=== PATIENT | female | born 1955 | race Caucasian/White ===

== ENCOUNTER 2021-05-13 09:08 | Inpatient (IN) ==
[2021-05-13] MEDS ORDERED: 0.9 % Sodium Chloride 1,000 ML ONE (09:21)
[2021-05-13] MEDS ORDERED: 0.9 % Sodium Chloride 1,000 ML IVC ONE ×2 (09:26→10:01)
[2021-05-13 09:48] LABS: Basophils # 0.1 K/mcL (0.0-0.2); Basophils % 0.2 %; Eosinophils # 0.1 K/mcL (0.0-0.6); Eosinophils % 0.4 %; Hematocrit 45.2 % (35.3-44.9); Hemoglobin 15.1 g/dL (11.5-15.4); Immature Granulocytes % 1.8 % (0-4); Lymphocytes # 3.6 K/mcL (0.6-4.6); Lymphocytes % 14.5 %; Mean Corpuscular HGB Conc 33.4 g/dL (31.6-35.5); Mean Corpuscular Hemoglobin 28.2 pg (28.0-33.3); Mean Corpuscular Volume 84.3 fL (83.0-100.0); Monocytes # 2.3 K/mcL (0.0-1.3); Monocytes % 9.3 %; Neutrophils # 18.4 K/mcL (1.6-8.9); Platelet Count 497 K/mcL (140-400); Red Blood Count 5.36 M/mcL (3.82-4.97); Red Cell Distribution Width 13.6 % (11.5-14.5); Segmented Neutrophils % 73.8 %; White Blood Count 24.9 K/mcL (4.3-11.1)
[2021-05-13 09:56] LABS: INR 1.1; Prothrombin Time 12.2 Seconds (9.4-12.1)
[2021-05-13] MEDS ORDERED: Vancomycin 1,500 MG/265 ML IV.SOLN IVPB ONE (09:59)
[2021-05-13] MEDS ORDERED: Piperacillin/Tazobactam 3.375 GM in 0.9 % Sodium Chloride Mini Bag 100 ML IVPB ONE (09:59)
[2021-05-13 10:09] LABS: BUN/Creatinine Ratio 43 (6-26); Blood Urea Nitrogen 44 mg/dL (8-23); Calcium 9.8 mg/dL (8.6-10.3); Carbon Dioxide 23 mEq/L (23-29); Chloride 97 mEq/L (98-107); Glucose 114 mg/dL (70-105); Osmolality,Calculated 284 (280-300); Potassium 3.5 mEq/L (3.5-5.1); Sodium 131 mEq/L (136-145); eGFR For African Americans > 60 (> 60); eGFR For Non-African Americans 55 (> 60)
[2021-05-13 10:51] LABS: Troponin I 0.05 ng/mL (< 0.04)
[2021-05-13 11:03] LABS: Bilirubin,Urine Negative (Negative); Blood,Urine Negative (Negative); Clarity,Urine Clear (Clear); Color,Urine Light-Yellow (Yellow); Glucose,Urine (UA) Normal (Normal); Ketones,Urine Trace mg/dL (Negative); Leukocyte Esterase,Urine Negative (Negative); Nitrite,Urine Negative (Negative); PH,Urine 6.5 pH Units (5.0-8.0); Protein,Urine Trace mg/dL (Neg-Trace); Specific Gravity,Urine 1.023 (1.010-1.025); Urobilinogen,Urine Normal (Normal)
[2021-05-13] MEDS ORDERED: Aspirin 81 MG TAB.CHEW PO ONE (12:08)
[2021-05-13] MEDS ORDERED: Aspirin 81 MG TAB.CHEW ONE (12:12)
[2021-05-13] MEDS ORDERED: Ondansetron 4 MG/2 ML VIAL IVP PRN (12:51)
[2021-05-13] MEDS ORDERED: Naloxone 0.4 MG/ML INJ IVP PRN (12:51)
[2021-05-13] MEDS ORDERED: Acetaminophen 325 MG TABLET PO PRN (12:51)
[2021-05-13] MEDS ORDERED: Ringers Solution, Lactated 1,000 ML IVC SCH (13:00)
[2021-05-13] MEDS ORDERED: Isovue-370 500 ML BOTTLE IVP ONE (13:52)
[2021-05-13] MEDS ORDERED: 0.9 % Sodium Chloride 500 ML IVC ONE (13:55)
[2021-05-13] MEDS ORDERED: Vancomycin 1,500 MG/265 ML IV.SOLN IVPB SCH (14:00)
[2021-05-13] MEDS: Gabapentin 300 MG CAPSULE PO SCH ×2 (14:04→20:18)
[2021-05-13] MEDS: *HR* Heparin 5,000 UNIT/ML VIAL SQ SCH ×2 (14:05→22:12)
[2021-05-13] MEDS ORDERED: Perflutren Lipid Microsphere 1.3 ML in 0.9 % Sodium Chloride 8.7 ML IVP PRN (16:45)
[2021-05-13] MEDS: Piperacillin/Tazobactam 3.375 GM in 0.9 % Sodium Chloride Mini Bag 100 ML IVPB SCH (17:53)
[2021-05-13] MEDS: 0.9 % Sodium Chloride 1,000 ML IVC SCH (17:54)
[2021-05-14] MEDS: Vancomycin 1,250 MG/262.5 ML IV.SOLN IVPB SCH ×2 (00:10→18:19)
[2021-05-14] MEDS: Piperacillin/Tazobactam 3.375 GM in 0.9 % Sodium Chloride Mini Bag 100 ML IVPB SCH ×3 (01:58→21:21)
[2021-05-14 04:58] LABS: BUN/Creatinine Ratio 42 (6-26); Blood Urea Nitrogen 28 mg/dL (8-23); Calcium 7.3 mg/dL (8.6-10.3); Carbon Dioxide 16 mEq/L (23-29); Chloride 109 mEq/L (98-107); Cholesterol 129 mg/dL (< 200); Glucose 125 mg/dL (70-105); HDL Cholesterol 32 mg/dL (40-59); LDL Cholesterol,Calculated 69 mg/dL (< 100); Magnesium 1.7 mg/dL (1.6-2.6); Osmolality,Calculated 283 (280-300); Potassium 4.5 mEq/L (3.5-5.1); Sodium 133 mEq/L (136-145); Triglycerides 140 mg/dL (< 150); eGFR For African Americans > 60 (> 60); eGFR For Non-African Americans > 60 (> 60)
[2021-05-14] MEDS: 0.9 % Sodium Chloride 1,000 ML IVC SCH (05:57)
[2021-05-14] MEDS: *HR* Heparin 5,000 UNIT/ML VIAL SQ SCH ×3 (05:59→21:50)
[2021-05-14 06:03] LABS: Basophils % 0.2 %; Eosinophils # 0.2 K/mcL (0.0-0.6); Eosinophils % 1.2 %; Hematocrit 30.5 % (35.3-44.9); Hemoglobin 10.6 g/dL (11.5-15.4); Lymphocytes % 17.5 %; Mean Corpuscular HGB Conc 34.8 g/dL (31.6-35.5); Mean Corpuscular Hemoglobin 29.4 pg (28.0-33.3); Mean Corpuscular Volume 84.5 fL (83.0-100.0); Mean Platelet Volume 10.4 fL (9.4-12.4); Monocytes # 1.9 K/mcL (0.0-1.3); Monocytes % 10.8 %; Platelet Count 337 K/mcL (140-400); Red Blood Count 3.61 M/mcL (3.82-4.97); Red Cell Distribution Width 13.8 % (11.5-14.5); Segmented Neutrophils % 69.3 %; White Blood Count 17.2 K/mcL (4.3-11.1)
[2021-05-14] MEDS ORDERED: Regadenoson 0.4 MG/5 ML SYRINGE IVP ONE (06:28)
[2021-05-14] MEDS: Tiotropium 10 INH DOSE IH SCH (08:07)
[2021-05-14] MEDS: Gabapentin 300 MG CAPSULE PO SCH ×3 (09:14→21:50)
[2021-05-14] MEDS: Loratadine 10 MG TABLET PO SCH (09:14)
[2021-05-14] MEDS: Fluticasone Propionate Nasal 50 MCG/SPRAY BOTTLE NS SCH (09:54)
[2021-05-14] MEDS ORDERED: GI Cocktail 40 ML EACH PO ONE (16:10)
[2021-05-14] MEDS: Pantoprazole 40 MG VIAL IVP SCH (18:19)
[2021-05-14] MEDS: Azithromycin 500 MG in 0.9 % Sodium Chloride 250 ML IVPB SCH (19:28)
[2021-05-15] MEDS: Piperacillin/Tazobactam 3.375 GM in 0.9 % Sodium Chloride Mini Bag 100 ML IVPB SCH ×2 (00:57→07:50)
[2021-05-15 01:01] LABS: Basophils % 0.2 %; Eosinophils # 0.2 K/mcL (0.0-0.6); Eosinophils % 1.8 %; Hematocrit 28.5 % (35.3-44.9); Hemoglobin 9.7 g/dL (11.5-15.4); Immature Granulocytes % 0.8 % (0-4); Lymphocytes # 2.8 K/mcL (0.6-4.6); Lymphocytes % 22.7 %; Mean Corpuscular Hemoglobin 28.9 pg (28.0-33.3); Mean Corpuscular Volume 84.8 fL (83.0-100.0); Mean Platelet Volume 9.6 fL (9.4-12.4); Monocytes # 1.3 K/mcL (0.0-1.3); Monocytes % 10.3 %; Neutrophils # 7.9 K/mcL (1.6-8.9); Platelet Count 294 K/mcL (140-400); Red Blood Count 3.36 M/mcL (3.82-4.97); Red Cell Distribution Width 13.9 % (11.5-14.5); Segmented Neutrophils % 64.2 %; White Blood Count 12.3 K/mcL (4.3-11.1)
[2021-05-15 01:27] LABS: Alanine Aminotransferase 12 Units/L (7-52); Albumin 2.7 g/dL (3.5-5.7); Albumin/Globulin Ratio 1.5 (1.1-2.2); Alkaline Phosphatase 81 Units/L (34-104); Aspartate Amino Transferase 12 Units/L (13-39); BUN/Creatinine Ratio 32 (6-26); Bilirubin,Total 0.3 mg/dL (0.3-1.0); Blood Urea Nitrogen 18 mg/dL (8-23); Calcium 7.3 mg/dL (8.6-10.3); Carbon Dioxide 21 mEq/L (23-29); Chloride 107 mEq/L (98-107); Globulin 1.8 g/dL (2.4-3.5); Glucose 116 mg/dL (70-105); Magnesium 1.8 mg/dL (1.6-2.6); Osmolality,Calculated 279 (280-300); Potassium 3.2 mEq/L (3.5-5.1); Sodium 133 mEq/L (136-145); Total Protein 4.5 g/dL (6.4-8.9); eGFR For African Americans > 60 (> 60); eGFR For Non-African Americans > 60 (> 60)
[2021-05-15] MEDS: Vancomycin 1,250 MG/262.5 ML IV.SOLN IVPB SCH ×2 (03:02→11:59)
[2021-05-15] MEDS: *HR* Heparin 5,000 UNIT/ML VIAL SQ SCH (06:23)
[2021-05-15] MEDS: Pantoprazole 40 MG VIAL IVP SCH (06:23)
[2021-05-15] MEDS: Gabapentin 300 MG CAPSULE PO SCH ×3 (08:00→20:27)
[2021-05-15] MEDS: Loratadine 10 MG TABLET PO SCH (08:00)
[2021-05-15] MEDS: Fluticasone Propionate Nasal 50 MCG/SPRAY BOTTLE NS SCH (08:01)
[2021-05-15] MEDS: hydroCHLOROthiazide 25 MG TABLET PO SCH (08:07)
[2021-05-15] MEDS ORDERED: Potassium Chloride Elixir 20 MEQ/15 ML UDC PO ONE (08:20)
[2021-05-15] MEDS: Tiotropium 10 INH DOSE IH SCH (08:21)
[2021-05-15] MEDS ORDERED: *HR* Propofol 200 MG/20 ML VIAL IVP ONE (14:11)
[2021-05-15] MEDS ORDERED: Lidocaine -MPF 2% 5 ML VIAL ONE (14:11)
[2021-05-15] MEDS: Azithromycin 500 MG in 0.9 % Sodium Chloride 250 ML IVPB SCH (14:59)
[2021-05-15] MEDS ORDERED: Ondansetron ODT 4 MG TAB.RAPDIS SL PRN (17:15)
[2021-05-16 02:57] LABS: Basophils % 0.4 %; Eosinophils # 0.4 K/mcL (0.0-0.6); Eosinophils % 3.5 %; Hematocrit 26.3 % (35.3-44.9); Hemoglobin 9.1 g/dL (11.5-15.4); Immature Granulocytes % 0.8 % (0-4); Lymphocytes # 2.8 K/mcL (0.6-4.6); Lymphocytes % 26.4 %; Mean Corpuscular HGB Conc 34.6 g/dL (31.6-35.5); Mean Corpuscular Hemoglobin 29.2 pg (28.0-33.3); Mean Corpuscular Volume 84.3 fL (83.0-100.0); Mean Platelet Volume 9.4 fL (9.4-12.4); Monocytes % 9.3 %; Neutrophils # 6.3 K/mcL (1.6-8.9); Platelet Count 310 K/mcL (140-400); Red Blood Count 3.12 M/mcL (3.82-4.97); Red Cell Distribution Width 14.1 % (11.5-14.5); Segmented Neutrophils % 59.6 %; White Blood Count 10.6 K/mcL (4.3-11.1)
[2021-05-16 03:17] LABS: BUN/Creatinine Ratio 18 (6-26); Blood Urea Nitrogen 11 mg/dL (8-23); Calcium 7.5 mg/dL (8.6-10.3); Carbon Dioxide 21 mEq/L (23-29); Chloride 106 mEq/L (98-107); Glucose 106 mg/dL (70-105); Osmolality,Calculated 278 (280-300); Potassium 3.2 mEq/L (3.5-5.1); Sodium 134 mEq/L (136-145); eGFR For African Americans > 60 (> 60); eGFR For Non-African Americans > 60 (> 60)
[2021-05-16 03:31] LABS: Thyroid Stimulating Hormone 1.939 mcIU/mL (0.340-5.600)
[2021-05-16 04:38] VITALS: TEMP 98.6
[2021-05-16] MEDS ORDERED: Potassium Chloride Elixir 20 MEQ/15 ML UDC PO ONE (06:53)
[2021-05-16] MEDS ORDERED: Sucralfate 1 GM TABLET PO SCH (07:30)
[2021-05-16] MEDS: Tiotropium 10 INH DOSE IH SCH (07:49)
[2021-05-16] MEDS: hydroCHLOROthiazide 25 MG TABLET PO SCH (08:01)
[2021-05-16] MEDS: Gabapentin 300 MG CAPSULE PO SCH (08:01)
[2021-05-16] MEDS: Loratadine 10 MG TABLET PO SCH (08:01)
[2021-05-16] MEDS: Fluticasone Propionate Nasal 50 MCG/SPRAY BOTTLE NS SCH (08:03)
[2021-05-16 08:16] VITALS: BP 143/75; PULSE 95; O2SAT 97
[2021-05-16] MEDS ORDERED: levoFLOXacin 750 MG TABLET PO SCH (09:00)
[2021-05-16] MEDS ORDERED: Furosemide 40 MG TABLET PO ONE (09:26)
== END 2021-05-16 14:50 | disposition home or self-care (01) | DRG 871 ==
LOC: EMEROOARM 09:08 → 2NENU 09:08 → SUATTDRO 12:02 → 2NENU 12:54
PROVIDERS: ADMIT Family Medicine; ATTEND Internal Medicine
PROC: ENDOEBX (2021-05-15 13:30)

== ENCOUNTER 2021-07-03 12:31 | Inpatient (IN) ==
[2021-07-03] MEDS ORDERED: Vancomycin 1,250 MG/262.5 ML IV.SOLN IVPB ONE (17:06)
[2021-07-03] MEDS ORDERED: *HR* HYDROcodone/Acet 5/325 mg TABLET PO ONE (17:43)
[2021-07-03 17:45] LABS: Basophils % 0.3 %; Eosinophils # 0.1 K/mcL (0.0-0.6); Eosinophils % 0.9 %; Hematocrit 39.5 % (35.3-44.9); Hemoglobin 12.9 g/dL (11.5-15.4); Immature Granulocytes % 0.3 % (0-4); Lymphocytes % 17.2 %; Mean Corpuscular HGB Conc 32.7 g/dL (31.6-35.5); Mean Corpuscular Volume 85.7 fL (83.0-100.0); Mean Platelet Volume 10.6 fL (9.4-12.4); Monocytes # 1.1 K/mcL (0.0-1.3); Monocytes % 9.7 %; Neutrophils # 8.3 K/mcL (1.6-8.9); Platelet Count 384 K/mcL (140-400); Red Blood Count 4.61 M/mcL (3.82-4.97); Red Cell Distribution Width 12.5 % (11.5-14.5); Segmented Neutrophils % 71.6 %; White Blood Count 11.6 K/mcL (4.3-11.1)
[2021-07-03 17:54] LABS: BUN/Creatinine Ratio 13 (6-26); Blood Urea Nitrogen 13 mg/dL (8-23); C-Reactive Protein 137 mg/L (Less than 10); Calcium 9.6 mg/dL (8.6-10.3); Carbon Dioxide 25 mEq/L (23-29); Chloride 96 mEq/L (98-107); Glucose 128 mg/dL (70-105); Osmolality,Calculated 274 (280-300); Potassium 3.3 mEq/L (3.5-5.1); Sodium 131 mEq/L (136-145); eGFR For African Americans > 60 (> 60); eGFR For Non-African Americans 55 (> 60)
[2021-07-03] MEDS ORDERED: *HR* Promethazine 25 MG/ML VIAL IM PRN (20:19)
[2021-07-03] MEDS ORDERED: Acetaminophen 325 MG TABLET PO PRN (20:19)
[2021-07-03] MEDS ORDERED: Naloxone 0.4 MG/ML INJ IVP PRN (20:19)
[2021-07-03] MEDS ORDERED: Ondansetron 4 MG/2 ML VIAL IVP PRN (20:19)
[2021-07-03] MEDS ORDERED: Ringers Solution, Lactated 1,000 ML IVC SCH (20:30)
[2021-07-03] MEDS ORDERED: Saline Nasal Spray 44 ML BOTTLE NS PRN (21:34)
[2021-07-03] MEDS: Melatonin 3 MG TABLET PO PRN (21:53)
[2021-07-03] MEDS: Gabapentin 300 MG CAPSULE PO SCH (21:55)
[2021-07-03] MEDS: *HR* OxyCODONE Immed Rel 5 MG TABLET PO PRN (21:55)
[2021-07-03] MEDS: Loratadine 10 MG TABLET PO SCH (21:55)
[2021-07-03] MEDS: hydroCHLOROthiazide 25 MG TABLET PO SCH (21:59)
[2021-07-03] MEDS ORDERED: 0.9 % Sodium Chloride 1,000 ML IVC SCH (22:00)
[2021-07-03] MEDS: Sucralfate 1 GM TABLET PO SCH (22:01)
[2021-07-03] MEDS: Tiotropium 10 INH DOSE IH SCH (22:05)
[2021-07-03] MEDS: Zinc Sulfate 220 MG CAPSULE PO SCH (22:17)
[2021-07-03] MEDS: Magnesium Oxide 400 MG TABLET PO SCH (22:17)
[2021-07-03] MEDS: Piperacillin/Tazobactam 3.375 GM in 0.9 % Sodium Chloride Mini Bag 100 ML IVPB SCH (23:10)
[2021-07-04] MEDS: *HR* OxyCODONE Immed Rel 5 MG TABLET PO PRN ×3 (03:08→21:00)
[2021-07-04] MEDS ORDERED: 0.9 % Sodium Chloride 1,000 ML IVC SCH (03:15)
[2021-07-04] MEDS ORDERED: *HR* HYDROmorphone (PF) 1 MG/ML SYRINGE IVP ONE (04:11)
[2021-07-04 07:22] LABS: BUN/Creatinine Ratio 13 (6-26); Blood Urea Nitrogen 12 mg/dL (8-23); Calcium 9.4 mg/dL (8.6-10.3); Carbon Dioxide 17 mEq/L (23-29); Chloride 100 mEq/L (98-107); Chol/HDL Ratio 2.6 (0-4.9); Cholesterol 169 mg/dL (< 200); Glucose 100 mg/dL (70-105); HDL Cholesterol 64 mg/dL (40-59); LDL Cholesterol,Calculated 92 mg/dL (< 100); Osmolality,Calculated 274 (280-300); Potassium 4.2 mEq/L (3.5-5.1); Sodium 132 mEq/L (136-145); Triglycerides 66 mg/dL (< 150); eGFR For African Americans > 60 (> 60); eGFR For Non-African Americans 59 (> 60)
[2021-07-04] MEDS ORDERED: Gadolinium Contrast Agent (WT Based) IV PRN (07:26)
[2021-07-04] MEDS: Sucralfate 1 GM TABLET PO SCH ×2 (07:38→11:34)
[2021-07-04] MEDS: Gabapentin 300 MG CAPSULE PO SCH ×3 (07:39→21:51)
[2021-07-04] MEDS: Zinc Sulfate 220 MG CAPSULE PO SCH (07:39)
[2021-07-04] MEDS: Magnesium Oxide 400 MG TABLET PO SCH (07:39)
[2021-07-04] MEDS: hydroCHLOROthiazide 25 MG TABLET PO SCH (07:39)
[2021-07-04] MEDS: Piperacillin/Tazobactam 3.375 GM in 0.9 % Sodium Chloride Mini Bag 100 ML IVPB SCH (07:53)
[2021-07-04] MEDS: *HR* HYDROcodone/Acet 5/325 mg TABLET PO PRN (08:11)
[2021-07-04] MEDS ORDERED: Ringers Solution, Lactated 1,000 ML IVC SCH (08:11)
[2021-07-04 10:07] LABS: Basophils % 0.2 %; Eosinophils # 0.1 K/mcL (0.0-0.6); Eosinophils % 1.6 %; Hematocrit 33.2 % (35.3-44.9); Immature Granulocytes % 0.5 % (0-4); Lymphocytes # 1.4 K/mcL (0.6-4.6); Lymphocytes % 16.1 %; Mean Corpuscular HGB Conc 33.1 g/dL (31.6-35.5); Mean Corpuscular Hemoglobin 28.3 pg (28.0-33.3); Mean Corpuscular Volume 85.3 fL (83.0-100.0); Mean Platelet Volume 10.6 fL (9.4-12.4); Monocytes # 1.1 K/mcL (0.0-1.3); Monocytes % 12.8 %; Neutrophils # 5.8 K/mcL (1.6-8.9); Platelet Count 331 K/mcL (140-400); Red Blood Count 3.89 M/mcL (3.82-4.97); Red Cell Distribution Width 12.6 % (11.5-14.5); Segmented Neutrophils % 68.8 %; White Blood Count 8.5 K/mcL (4.3-11.1)
[2021-07-04 10:14] LABS: INR 1.2; Prothrombin Time 13.7 Seconds (9.4-12.1)
[2021-07-04] MEDS ORDERED: GADOBUTROL 30 MMOL/30 ML VIAL IVP ONE (10:17)
[2021-07-04] MEDS: Tiotropium 10 INH DOSE IH SCH (11:10)
[2021-07-04] MEDS: Vancomycin 1,500 MG/265 ML IV.SOLN IVPB SCH ×3 (14:31→20:21)
[2021-07-04] MEDS ORDERED: *HR* FentaNYL (PF) 100 MCG/2 ML VIAL ONE ×2 (17:11→19:00)
[2021-07-04] MEDS ORDERED: *HR* Propofol 200 MG/20 ML VIAL IVP ONE (17:11)
[2021-07-04] MEDS ORDERED: Ondansetron 4 MG/2 ML VIAL ONE (17:13)
[2021-07-04] MEDS ORDERED: Lidocaine -MPF 2% 5 ML VIAL ONE ×2 (17:13→18:13)
[2021-07-04] MEDS ORDERED: Lidocaine/EPI 1:100k 1% 30 ML VIAL ONE (17:28)
[2021-07-04] MEDS ORDERED: *HR* HYDROMORPHONE 2 MG/ML VIAL ONE (18:13)
[2021-07-04] MEDS ORDERED: *HR* HYDROmorphone PF 0.5 MG/0.5 ML SYRINGE IVP PRN (19:03)
[2021-07-04] MEDS: *HR* FentaNYL (PF) 100 MCG/2 ML VIAL IVP PRN ×2 (19:10→19:21)
[2021-07-05] MEDS: Piperacillin/Tazobactam 3.375 GM in 0.9 % Sodium Chloride Mini Bag 100 ML IVPB SCH ×3 (01:24→21:15)
[2021-07-05] MEDS: *HR* HYDROcodone/Acet 5/325 mg TABLET PO PRN ×2 (01:24→16:50)
[2021-07-05 02:41] LABS: Basophils % 0.2 %; Hematocrit 34.4 % (35.3-44.9); Hemoglobin 11.6 g/dL (11.5-15.4); Immature Granulocytes % 0.6 % (0-4); Lymphocytes # 0.9 K/mcL (0.6-4.6); Lymphocytes % 10.1 %; Mean Corpuscular HGB Conc 33.7 g/dL (31.6-35.5); Mean Corpuscular Hemoglobin 29.1 pg (28.0-33.3); Mean Corpuscular Volume 86.4 fL (83.0-100.0); Mean Platelet Volume 11.2 fL (9.4-12.4); Monocytes # 0.3 K/mcL (0.0-1.3); Monocytes % 3.5 %; Neutrophils # 7.6 K/mcL (1.6-8.9); Platelet Count 343 K/mcL (140-400); Red Blood Count 3.98 M/mcL (3.82-4.97); Red Cell Distribution Width 12.3 % (11.5-14.5); Segmented Neutrophils % 85.6 %; White Blood Count 8.9 K/mcL (4.3-11.1)
[2021-07-05 02:54] LABS: BUN/Creatinine Ratio 18 (6-26); Blood Urea Nitrogen 14 mg/dL (8-23); Calcium 8.8 mg/dL (8.6-10.3); Carbon Dioxide 19 mEq/L (23-29); Chloride 103 mEq/L (98-107); Glucose 130 mg/dL (70-105); Magnesium 1.6 mg/dL (1.6-2.6); Osmolality,Calculated 278 (280-300); Phosphorous 3.6 mg/dL (2.7-4.5); Potassium 4.3 mEq/L (3.5-5.1); Sodium 133 mEq/L (136-145); eGFR For African Americans > 60 (> 60); eGFR For Non-African Americans > 60 (> 60)
[2021-07-05] MEDS: *HR* OxyCODONE Immed Rel 5 MG TABLET PO PRN ×2 (06:16→12:51)
[2021-07-05] MEDS: Sucralfate 1 GM TABLET PO SCH ×4 (06:17→21:13)
[2021-07-05] MEDS: *HR* Enoxaparin 40 MG/0.4 ML SYRINGE SQ SCH (06:17)
[2021-07-05] MEDS: Tiotropium 10 INH DOSE IH SCH (08:03)
[2021-07-05] MEDS: Zinc Sulfate 220 MG CAPSULE PO SCH (09:03)
[2021-07-05] MEDS: hydroCHLOROthiazide 25 MG TABLET PO SCH (09:03)
[2021-07-05] MEDS: Gabapentin 300 MG CAPSULE PO SCH ×3 (09:03→21:14)
[2021-07-05] MEDS: Magnesium Oxide 400 MG TABLET PO SCH ×2 (09:04→21:14)
[2021-07-05] MEDS ORDERED: Vancomycin 1,500 MG/265 ML IV.SOLN IVPB SCH (18:00)
[2021-07-05] MEDS: Loratadine 10 MG TABLET PO SCH ×2 (21:12→21:14)
[2021-07-06] MEDS: Piperacillin/Tazobactam 3.375 GM in 0.9 % Sodium Chloride Mini Bag 100 ML IVPB SCH ×3 (03:39→20:23)
[2021-07-06] MEDS: *HR* HYDROcodone/Acet 5/325 mg TABLET PO PRN ×2 (03:40→20:47)
[2021-07-06] MEDS: *HR* Enoxaparin 40 MG/0.4 ML SYRINGE SQ SCH (05:11)
[2021-07-06] MEDS: Magnesium Oxide 400 MG TABLET PO SCH ×2 (07:43→20:26)
[2021-07-06] MEDS: hydroCHLOROthiazide 25 MG TABLET PO SCH (07:44)
[2021-07-06] MEDS: Gabapentin 300 MG CAPSULE PO SCH ×3 (07:44→20:27)
[2021-07-06] MEDS: Sucralfate 1 GM TABLET PO SCH ×3 (07:44→14:38)
[2021-07-06] MEDS: Zinc Sulfate 220 MG CAPSULE PO SCH (07:45)
[2021-07-06] MEDS: Tiotropium 10 INH DOSE IH SCH (07:56)
[2021-07-06] MEDS: *HR* OxyCODONE Immed Rel 5 MG TABLET PO PRN ×2 (08:07→14:39)
[2021-07-06 08:27] LABS: BUN/Creatinine Ratio 19 (6-26); Blood Urea Nitrogen 15 mg/dL (8-23); Carbon Dioxide 22 mEq/L (23-29); Chloride 105 mEq/L (98-107); Glucose 109 mg/dL (70-105); Osmolality,Calculated 283 (280-300); Potassium 4.1 mEq/L (3.5-5.1); Sodium 136 mEq/L (136-145); eGFR For African Americans > 60 (> 60); eGFR For Non-African Americans > 60 (> 60)
[2021-07-06] MEDS: Vancomycin 1,750 MG/517.5 ML IV.SOLN IVPB SCH (17:43)
[2021-07-06] MEDS: Melatonin 3 MG TABLET PO PRN (20:26)
[2021-07-06] MEDS: Loratadine 10 MG TABLET PO SCH (20:26)
[2021-07-07 00:49] LABS: BUN/Creatinine Ratio 18 (6-26); Blood Urea Nitrogen 16 mg/dL (8-23); Calcium 8.6 mg/dL (8.6-10.3); Carbon Dioxide 22 mEq/L (23-29); Chloride 106 mEq/L (98-107); Glucose 133 mg/dL (70-105); Osmolality,Calculated 283 (280-300); Potassium 3.5 mEq/L (3.5-5.1); Sodium 135 mEq/L (136-145); eGFR For African Americans > 60 (> 60); eGFR For Non-African Americans > 60 (> 60)
[2021-07-07] MEDS: Piperacillin/Tazobactam 3.375 GM in 0.9 % Sodium Chloride Mini Bag 100 ML IVPB SCH (04:54)
[2021-07-07] MEDS: *HR* Enoxaparin 40 MG/0.4 ML SYRINGE SQ SCH (05:00)
[2021-07-07] MEDS: Sucralfate 1 GM TABLET PO SCH ×3 (08:34→16:36)
[2021-07-07] MEDS: *HR* HYDROcodone/Acet 5/325 mg TABLET PO PRN ×2 (08:35→19:29)
[2021-07-07] MEDS: Zinc Sulfate 220 MG CAPSULE PO SCH (08:35)
[2021-07-07] MEDS: hydroCHLOROthiazide 25 MG TABLET PO SCH (08:35)
[2021-07-07] MEDS: Magnesium Oxide 400 MG TABLET PO SCH ×2 (08:36→19:11)
[2021-07-07] MEDS: Gabapentin 300 MG CAPSULE PO SCH ×3 (08:36→19:11)
[2021-07-07] MEDS: Tiotropium 10 INH DOSE IH SCH (09:09)
[2021-07-07] MEDS ORDERED: *HR* LORazepam 2 MG/ML VIAL IVP ONE (13:13)
[2021-07-07] MEDS ORDERED: 0.9 % Sodium Chloride 1,000 ML ONE (13:55)
[2021-07-07] MEDS: Vancomycin 1,750 MG/517.5 ML IV.SOLN IVPB SCH (19:11)
[2021-07-07] MEDS: Loratadine 10 MG TABLET PO SCH (19:11)
[2021-07-08] MEDS: *HR* Enoxaparin 40 MG/0.4 ML SYRINGE SQ SCH (06:11)
[2021-07-08] MEDS: *HR* OxyCODONE Immed Rel 5 MG TABLET PO PRN (06:16)
[2021-07-08 08:05] VITALS: BP 150/91; PULSE 85; TEMP 97.5; O2SAT 97
[2021-07-08] MEDS: Sucralfate 1 GM TABLET PO SCH (08:19)
[2021-07-08] MEDS: hydroCHLOROthiazide 25 MG TABLET PO SCH (08:20)
[2021-07-08] MEDS: Gabapentin 300 MG CAPSULE PO SCH (08:20)
[2021-07-08] MEDS: Zinc Sulfate 220 MG CAPSULE PO SCH (08:20)
[2021-07-08] MEDS: Magnesium Oxide 400 MG TABLET PO SCH (08:20)
== END 2021-07-08 09:30 | disposition home health service (06) | DRG 857 ==
LOC: EMEROOARM 12:31 → 3ANU 12:31 → SUATTDRO 18:23 → 3ANU 20:10
PROVIDERS: ADMIT Hospitalist; ATTEND General Practice